=== PATIENT | male | born 1935 | race Caucasian/White ===

== ENCOUNTER 2017-08-16 18:55 | Emergency (ER) | payer MEDICARE, OTHER ==
[~2017-08-16] VITALS: Ht 185.4 cm; Wt 77.1 kg
[~2017-08-16 18:55] MED LIST: ALBUTEROL INHAL17 GM INH; ALPRAZOLAM; AVELOX400 MG PO; AVODART; BENZONATATE200 MG; CIPRO500 MG PO; DOXYCYCLINE 10100 M1 PO; FLAGYL500 MG PO; FLOMAX; LOW DOSE ASPIRI81 M1; PREDNISONE 10 M10 MG PO; PRILOSEC 20 MG20 MG PO; XANAX XR1 MG PO; ZOFRAN ODT4 MG PO; ZPAK; [UNRECOGNIZED DRUG - OTHER] PO
[2017-08-16 19:54] LABS: INFLUENZA A ANTIGEN None Detected (None Detect)
[2017-08-16] MEDS ORDERED: FLOMAX0.4 MG PO (20:18)
[2017-08-16] MEDS ORDERED: TAMIFLU75 MG PO (20:18)
[2017-08-16 20:23] LABS: ABSOLUTE LYMPHOCYTES 0.6 thou/uL (0.8-5.3); ABSOLUTE MONOCYTES 0.4 thou/uL (0.0-1.2); ABSOLUTE NEUTROPHILS 2.3 thou/uL (1.6-8.1); BASOPHILS 1.3 %; EOSINOPHILS 1.1 %; HEMATOCRIT 44.7 % (42.0-52.0); HEMOGLOBIN 15.2 gm/dL (14.0-18.0); LYMPHOCYTES 17.6 %; MCV 88.3 fL (80.0-100.0); MONOCYTES 11.6 %; MPV 7.8 fl. (7.2-11.1); NUCLEATED RBCS 0 /100WBC; PLATELET COUNT* 141 thou/uL (150-400); POLYS 68.4 %; RBC 5.07 mil/uL (4.50-6.00); RDW-CV 14.1 % (10.5-14.5); WBC 3.4 thou/uL (4.0-11.0)
[2017-08-16 20:28] LABS: URINE BILIRUBIN NEGATIVE (Negative); URINE BLOOD NEGATIVE (Negative); URINE CLARITY CLEAR; URINE COLOR YELLOW; URINE GLUCOSE-RANDOM NEGATIVE (Negative); URINE KETONES NEGATIVE (Negative); URINE LEUKOCYTES-REFLEX NEGATIVE (Negative); URINE NITRITE-REFLEX NEGATIVE (Negative); URINE PROTEIN NEGATIVE (Negative); URINE SPECIFIC GRAVITY 1.015 (1.005-1.030); URINE UROBILINOGEN 0.2 E.U./dl (0.2-1.0)
[2017-08-16 20:32] LABS: CALCIUM 8.3 mg/dL (8.5-10.1); CREATININE 1.1 mg/dL (0.6-1.3); POTASSIUM 4.7 mmol/L (3.5-5.1)
[2017-08-16 20:37] LABS: ALBUMIN 3.6 g/dL (3.4-5.0); TOTAL BILIRUBIN 0.3 mg/dL (<0.1-1.0); TOTAL PROTEIN 6.8 g/dL (6.4-8.2)
[2017-08-16 21:15] VITALS: BP 120/75
== END 2017-08-16 21:15 | disposition home or self-care (01) ==
LOC: M.ERS 18:55
PROVIDERS: Emergency Medicine
DX: J10.1 Influenza due to other identified influenza virus with other respiratory manifestations (principal); I10 Essential (primary) hypertension; Z90.49 Acquired absence of other specified parts of digestive tract